=== PATIENT | male | born 1975 | race Caucasian/White ===

== ENCOUNTER 2016-09-12 18:20 | Emergency (ER) | payer OTHER ==
[~2016-09-12] VITALS: Ht 185.4 cm; Wt 68.3 kg
[~2016-09-12 18:20] MED LIST: CYCLOBENZAPRINE10 MG PO; FLOMAX0.4 MG PO; HYDROCODON-ACE1 EAC7 PO; INDOCIN25 MG PO; MELOXICAM15 MG PO; NAPROSYN500 MG PO; TRAMADOL HCL50 MG PO; VALIUM5 MG PO
[2016-09-12 19:06] LABS: ADD MIUA? YES; BILIRUBIN MODERATE; BLOOD LARGE; GLUCOSE (STRIP) NEGATIVE; KETONES 15; LEUKOCYTES MODERATE; PROTEIN (STRIP) 100; SPECIFIC GRAVITY 1.034 (1.000-1.030)
[2016-09-12 19:07] LABS: COLOR AMBER ((YELLOW))
[2016-09-12 19:18] LABS: ICTOTEST NEGATIVE
[2016-09-12 19:33] LABS: BACTERIA NONE SEEN; CASTS NONE SEEN /LPF; CRYSTALS PRESENT; EPITHELIAL CELLS NONE SEEN; MUCUS NONE SEEN; RED BLOOD CELLS 40-50 /HPF (0-5); UCUL ADDED? NO
[2016-09-12 19:34] LABS: CALCIUM OXALATE CRYSTALS RARE
[2016-09-12 20:35] LABS: NITRITE NEGATIVE
[2016-09-12] MEDS ORDERED: ULTRACET1 TABLET PO (21:28)
[2016-09-12] MEDS ORDERED: LEVAQUIN500 MG PO (21:28)
[2016-09-12] MEDS ORDERED: MOTRIN800 MG PO (21:28)
[2016-09-12 21:48] VITALS: BP 109/72
[2016-09-16 11:57] LABS: CHLAMYDIA TRACHOMATIS INVALID; NEISSERIA GONORRHOEAE INVALID
== END 2016-09-12 21:49 | disposition home or self-care (01) ==
LOC: EME 18:20
DX: N30.91 Cystitis, unspecified with hematuria (principal); G62.9 Polyneuropathy, unspecified; M54.41 Lumbago with sciatica, right side; F17.200 Nicotine dependence, unspecified, uncomplicated
CPT/HCPCS: 81003; 87086; 87491; 87591; 99281; 99283